=== PATIENT | male | born 1980 ===

== ENCOUNTER 2021-04-03 09:29 | Emergency (ER) | payer SELFPAY ==
[~2021-04-03] VITALS: Ht 177.8 cm; Wt 145.1 kg
[2021-04-03 09:35] VITALS: BP 157/107
[2021-04-03] MEDS ORDERED: LIDOCAINE 1% HCL (LOCAL ANESTH.) INJ 20ML MDV IJ ONE (10:00)
[2021-04-03] MEDS ORDERED: cefTRIAXone SOD 1,000 MG VL IM ONE (10:00)
[2021-04-03] MEDS ORDERED: AMOX-277 PO (10:07)
[2021-04-03] MEDS ORDERED: LIDO2SOL23 PO (10:07)
== END 2021-04-03 10:18 | disposition home or self-care (01) ==
LOC: ER 09:29
DX: S01.512D Laceration without foreign body of oral cavity, subsequent encounter (principal); F12.10 Cannabis abuse, uncomplicated; X58.XXXD Exposure to other specified factors, subsequent encounter
CPT/HCPCS: 96372; 99283; J0696; J2001